=== PATIENT | male | born 1950 | race Caucasian/White ===

== ENCOUNTER 2017-08-10 22:28 | Emergency (ER) | payer BC ==
[2017-08-10] MEDS ORDERED: Ketorolac INJ* 30 MG/ML 1 ML VIAL IV PUSH ONE (22:33)
[2017-08-10] MEDS ORDERED: NS 0.9% 1000 ML* 1,000 ML IV ONE (22:52)
[2017-08-10 22:55] LABS: ABS Basophils 0.1 10^3/ul (0-0.2); ABS Eosinophils 0.2 10^3/ul (0-0.6); ABS Lymphocytes 1.3 10^3/ul (1.0-4.8); ABS Monocytes 1.1 10^3/ul (0-0.8); ABS Neutrophils 12.1 10^3/ul (1.5-7.7); ABS Nucleated RBC 0 10^3/ul; Eosinophil % 1.2 % (0-6); Hematocrit 46 % (42-52); Hemoglobin 15.8 g/dl (14.0-18.0); Lymphocyte % 8.7 % (25-47); Mean Corpuscular HGB Conc 35 g/dl (31-36); Mean Corpuscular Hemoglobin 32 pg (27-31); Mean Corpuscular Volume 94 fL (80-94); Mean Platelet Volume 8.5 um3 (7.4-10.4); Nucleated Red Blood Cells % 0.1; Platelet Count 188 10^3/ul (150-450); Red Cell Distribution Width 14 % (10.5-15); White Blood Count 14.8 10^3/ul (3.5-10.8)
[2017-08-10 22:58] LABS: INR 0.93 (0.77-1.02)
[2017-08-10] MEDS ORDERED: Tamsulosin CAP* 0.4 MG PO ONE (23:45)
[2017-08-11 00:04] LABS: Urine Appearance Clear; Urine Blood Negative (Negative); Urine Color Yellow; Urine Ketones Negative (Negative); Urine Protein Negative (Negative); Urine Specific Gravity 1.012 (1.010-1.030); Urine Urobilinogen Negative (Negative)
[2017-08-11 00:45] VITALS: BP 163/91
--- NOTE | 2017-08-11 02:38 | ED ---
Al Lozano Natalie, scribed for Rayo Betts MD on 08/10/17 at 2327 . Back Pain - HPI Summary HPI Summary: The patient is a 67 y/o M presenting to the ED accompanied by c/o sudden onset constant left flank pain starting two hours ago, worsening in the last hour. The pain started as discomfort, but has become more of an aching pain. The pain is rated 8/10 in severity. Pt additionally c/o frequent urination, cloudy urine, and nausea. Pt denies dysuria and hematuria. He had a US done approximately 3 weeks ago which was positive for kidney stone. He has hx of kidney stones. - History of Current Complaint Chief Complaint: EDFlankPain Stated Complaint: FLANK PAIN/NAUSEA Time Seen by Provider: 08/10/17 22:33 Hx Obtained From: Patient Onset/Duration: Sudden Onset, Lasting Hours, Still Present Onset/Duration: Started Hours Ago, Still Present Timing: Constant Severity Initially: Moderate Severity Currently: Severe Pain Intensity: 8 Pain Scale Used: 0-10 Numeric - Allergies/Home Medications Allergies/Adverse Reactions: Allergies Allergy/AdvReac Type Severity Reaction Status Date / Time Iodinated Contrast- Oral and Allergy Hives Verified 08/10/17 22:37 IV Dye PMH/Surg Hx/FS Hx/Imm Hx Endocrine/Hematology History: Reports: Other Endocrine/Hematological Disorders - hypercholesterolemia Denies: Hx Diabetes Cardiovascular History: Denies: Hx Hypertension History: Reports: Hx Kidney Stones - LEFT, MANY YEARS AGO, PASSED ON HIS OWN Infectious Disease History: No Infectious Disease History: Denies: Traveled Outside the [place] in Last 30 Days - Family History Known Family History: Negative: Diabetes Review of Systems Positive: Nausea Positive: frequency - increased, flank pain, other - cloudy urine. Negative: dysuria All Other Systems Reviewed And Are Negative: Yes Physical Exam - Summary Physical Exam Summary: Appearance: Well appearing, no pain distress Skin: warm, dry, reflects adequate perfusion Head/face: normal Eyes: EOMI, JOHN ENT: normal Neck: supple, non-tender Respiratory: CTA, breath sounds present Cardiovascular: RRR, pulses symmetrical Abdomen: non-tender, soft Bowel Sounds: present Musculoskeletal: normal, strength/ROM intact, no CVA tenderness or pain with palpation Neuro: normal, sensory motor intact, A&Ox3 Triage Information Reviewed: Yes Vital Signs On Initial Exam: Initial Vitals Temp Pulse Resp BP Pulse Ox 97.9 F 80 18 176/93 98 08/10/17 22:33 08/10/17 22:33 08/10/17 22:33 08/10/17 22:33 08/10/17 22:33 Vital Signs Reviewed: Yes Diagnostics - Vital Signs Vital Signs Temp Pulse Resp BP Pulse Ox 08/10/17 22:33 97.9 F 80 18 176/93 98 - Laboratory Lab Results: Lab Results 08/10/17 08/10/17 08/10/17 Range/Units 22:45 22:45 22:45 WBC 14.8 H (3.5-10.8) 10^3/ul RBC 4.90 (4.0-5.4) 10^6/ul Hgb 15.8 (14.0-18.0) g/dl Hct 46 (42-52) % MCV 94 (80-94) fL MCH 32 H (27-31) pg MCHC 35 (31-36) g/dl RDW 14 (10.5-15) % Plt Count 188 (150-450) 10^3/ul MPV 8.5 (7.4-10.4) um3 Neut % (Auto) 82.0 (38-83) % Lymph % (Auto) 8.7 L (25-47) % Gibson % (Auto) 7.6 H (0-7) % Eos % (Auto) 1.2 (0-6) % Baso % (Auto) 0.5 (0-2) % Absolute Neuts (auto) 12.1 H (1.5-7.7) 10^3/ul Absolute Lymphs (auto) 1.3 (1.0-4.8) 10^3/ul Absolute Monos (auto) 1.1 H (0-0.8) 10^3/ul Absolute Eos (auto) 0.2 (0-0.6) 10^3/ul Absolute Basos (auto) 0.1 (0-0.2) 10^3/ul Absolute Nucleated RBC 0 10^3/ul Nucleated RBC % 0.1 INR (Anticoag Therapy) 0.93 (0.77-1.02) Sodium 137 L (139-145) mmol/L Potassium 3.9 (3.5-5.0) mmol/L Chloride 103 (101-111) mmol/L Carbon Dioxide 30 (22-32) mmol/L Anion Gap 4 (2-11) mmol/L BUN 19 (6-24) mg/dL Creatinine 1.05 (0.67-1.17) mg/dL Est GFR ( Amer) 90.1 (>60) Est GFR (Non-Af Amer) 70.0 (>60) BUN/Creatinine Ratio 18.1 (8-20) Glucose 102 H (70-100) mg/dL Lactic Acid (0.5-2.0) mmol/L Calcium 10.1 (8.6-10.3) mg/dL Total Bilirubin 1.00 (0.2-1.0) mg/dL AST 23 (13-39) U/L ALT 19 (7-52) U/L Alkaline Phosphatase 58 (34-104) U/L C-Reactive Protein < 1.00 (< 5.00) mg/L Total Protein 7.2 (6.4-8.9) g/dL Albumin 4.5 (3.2-5.2) g/dL Globulin 2.7 (2-4) g/dL Albumin/Globulin Ratio 1.7 (1-3) Lipase 25 (11.0-82.0) U/L Urine Color Urine Appearance Urine pH (5-9) Ur Specific [place] (1.010-1.030) Urine Protein (Negative) Urine Ketones (Negative) Urine Blood (Negative) Urine Nitrate (Negative) Urine Bilirubin (Negative) Urine Urobilinogen (Negative) Ur Leukocyte Esterase (Negative) Urine Glucose (Negative) Urine Ascorbic Acid (Negative) 08/10/17 08/10/17 Range/Units 22:45 23:55 WBC (3.5-10.8) 10^3/ul RBC (4.0-5.4) 10^6/ul Hgb (14.0-18.0) g/dl Hct (42-52) % MCV (80-94) fL MCH (27-31) pg MCHC (31-36) g/dl RDW (10.5-15) % Plt Count (150-450) 10^3/ul MPV (7.4-10.4) um3 Neut % (Auto) (38-83) % Lymph % (Auto) (25-47) % Gibson % (Auto) (0-7) % Eos % (Auto) (0-6) % Baso % (Auto) (0-2) % Absolute Neuts (auto) (1.5-7.7) 10^3/ul Absolute Lymphs (auto) (1.0-4.8) 10^3/ul Absolute Monos (auto) (0-0.8) 10^3/ul Absolute Eos (auto) (0-0.6) 10^3/ul Absolute Basos (auto) (0-0.2) 10^3/ul Absolute Nucleated RBC 10^3/ul Nucleated RBC % INR (Anticoag Therapy) (0.77-1.02) Sodium (139-145) mmol/L Potassium (3.5-5.0) mmol/L Chloride (101-111) mmol/L Carbon Dioxide (22-32) mmol/L Anion Gap (2-11) mmol/L BUN (6-24) mg/dL Creatinine (0.67-1.17) mg/dL Est GFR ( Amer) (>60) Est GFR (Non-Af Amer) (>60) BUN/Creatinine Ratio (8-20) Glucose (70-100) mg/dL Lactic Acid 0.7 (0.5-2.0) mmol/L Calcium (8.6-10.3) mg/dL Total Bilirubin (0.2-1.0) mg/dL AST (13-39) U/L ALT (7-52) U/L Alkaline Phosphatase (34-104) U/L C-Reactive Protein (< 5.00) mg/L Total Protein (6.4-8.9) g/dL Albumin (3.2-5.2) g/dL Globulin (2-4) g/dL Albumin/Globulin Ratio (1-3) Lipase (11.0-82.0) U/L Urine Color Yellow Urine Appearance Clear Urine pH 6.0 (5-9) Ur Specific [place] 1.012 (1.010-1.030) Urine Protein Negative (Negative) Urine Ketones Negative (Negative) Urine Blood Negative (Negative) Urine Nitrate Negative (Negative) Urine Bilirubin Negative (Negative) Urine Urobilinogen Negative (Negative) Ur Leukocyte Esterase Negative (Negative) Urine Glucose Negative (Negative) Urine Ascorbic Acid * A (Negative) Result Diagrams: 08/10/17 22:45 08/10/17 22:45 Lab Statement: Any lab studies that have been ordered have been reviewed, and results considered in the medical decision making process. - Radiology Abd XR Xray Interpretation: Positive (See Comments) Radiology Interpretation Completed By: Radiologist - CT Abd/Pel CT CT Interpretation: Positive (See Comments) - Obstructive uropathy. ED physician has reviewed this report. CT Interpretation Completed By: Radiologist Back Pain Course/Dx - Course Course Of Treatment: Patient with flank pain and history kidney stones. Urologist had been informed prior to the patient's arrival. CT scan shows midureteral stone on the left. The patient is comfortable after Toradol. His urine is noninfected. KUB fails to show location of the stone. Flomax given. Patient will follow-up with the urologist tomorrow and discharged comfortable. - Diagnoses Differential Diagnosis/HQI/PQRI: Positive: Other - Renal colic, diverticulitis, lumbar back pain Provider Diagnoses: Renal colic, Ureterolithiasis - Provider Notifications Discussed Care Of Patient With: Gaston Starks Time Discussed With Above Provider: 23:52 Instructed by Provider To: Other - Dr. Starks would like a KUB for the pt. He will see the pt in his office. When UA results come back, we will see if the urine is infected. He would like the pt on Bactrim. Discharge - Sign-Out/Discharge Documenting (check all that apply): Discharge/Admit/Transfer - Discharge Plan Condition: Good Disposition: HOME Prescriptions: Naproxen [Naproxen 500 mg tab] 500 mg PO BID #10 tablet Ondansetron ODT TAB* [Zofran 4 MG Odt TAB*] 4 mg PO Q6H PRN #12 tab.odt PRN Reason: Nausea Oxycodone HCl/Acetaminophen [Percocet 5-325 mg Tablet] 1 each PO TID PRN #12 tablet MDD 3 PRN Reason: Severe Pain Tamsulosin HCl [Flomax] 0.4 mg PO DAILY #5 cap.er.24h Patient Education Materials: Renal Colic (ED) Referrals: Hever Santana MD [Primary Care Provider] - Gaston Starks MD [Medical Doctor] - Additional Instructions: Stay well-hydrated. Return with fever, vomiting, worse or other concerns. Call Dr. Starks first thing in the morning for an appointment. Strain your urine. - Billing Disposition and Condition Condition: GOOD Disposition: HOME The documentation as recorded by the Al lopez Natalie accurately reflects the service I personally performed and the decisions made by me, Rayo Betts MD.
--- NOTE | 2017-08-11 07:59 | RAD ---
INDICATION: Left flank pain. History of renal stones COMPARISON: KUB same date TECHNIQUE: Noncontrast axial source images were acquired from the level hemidiaphragms to the symphysis pubis as part of CT imaging for renal stone. Lung bases: The lung bases are clear. Liver: The liver is normal in size. Noncontrast imaging shows a 1 cm hypodensity left hepatic lobe and a 4 mm hypodensity in the inferior right hepatic lobe. These are indeterminant but on a statistical basis is likely represent cysts or hemangiomas.. Gallbladder: There are no calcified gallstones. There is no evidence of wall thickening or pericholecystic fluid.. Spleen: The spleen is normal in size. The noncontrast CT appearance is normal. Pancreas: Noncontrast imaging shows no pancreatic mass or ductal dilitation. Adrenal glands: No masses are identified. Kidneys/Bladder: There is no evidence of right-sided urolithiasis. There is moderate left-sided hydronephrosis and hydroureter. There is left-sided perinephric stranding. There are multiple calcifications along the course of the distal left ureter many of which are phleboliths but one of which is believed to represent an obstructive ureteral calculus measuring 4 mm. This is seen on coronal reference image 70/102. There are additional tiny nonobstructive left-sided renal stones Adenopathy: There is no evidence of intraperitoneal or retroperitoneal adenopathy. Evaluation is limited without oral contrast. Fluid collections: There are no free or localized fluid collections. Vessels: The aorta and iliac vessels are normal in caliber. There are no significant atherosclerotic changes. The IVC appears normal Pelvic organs: The prostate is enlarged GI tract: Evaluation of the bowel is limited without oral contrast. The stomach, small bowel, and lower GI tract appear grossly normal. There are no obstructive findings. The appendix is visualized and appears normal. Soft tissues: No soft tissue abnormalities of the extraperitoneal abdomen or pelvis are identified. Osseous structures: There are no acute osseous findings. IMPRESSION: MID TO DISTAL LEFT URETERAL CALCULUS WITH OBSTRUCTIVE FINDINGS. ADDITIONAL NONOBSTRUCTIVE LEFT-SIDED NEPHROLITHIASIS. BPH
--- NOTE | 2017-08-11 08:01 | RAD ---
HISTORY: Left mid ureteral stone COMPARISONS: June 06, 2017, CT dated August 10, 2017 VIEWS: Frontal views of the abdomen. FINDINGS: BOWEL: There is a nonspecific bowel gas pattern, with nondilated small bowel gas noted. There is a large amount of stool within the colon. CALCULI: There are no abnormal calculi. Evaluation is limited by overlying bowel. BONES AND SOFT TISSUES: Mild degenerative changes are noted. OTHER FINDINGS: The lung bases are clear. There is no subphrenic gas. IMPRESSION: LARGE AMOUNT OF STOOL WITHIN THE COLON. NO APPRECIABLE NEPHROLITHIASIS.
== END 2017-08-11 00:45 | disposition home or self-care (01) ==
LOC: ED 22:28
DX: N23 Unspecified renal colic (principal); N20.2 Calculus of kidney with calculus of ureter; N40.0 Benign prostatic hyperplasia without lower urinary tract symptoms; Z87.442 Personal history of urinary calculi; Z91.041 Radiographic dye allergy status
CPT/HCPCS: 36415; 74018; 74176; 80053; 81003; 83605; 83690; 85025; 85610; 86140; 96361; 96374; 99283; J1885

== ENCOUNTER 2018-07-09 16:08 | Emergency (ER) | payer BC ==
[2018-07-09 16:26] VITALS: BP 141/84
--- NOTE | 2018-07-09 16:44 | UC ---
Skin Complaint HPI - HPI Summary HPI Summary: Removed a tick above belly button on 3 days ago. Then noticed a red ring around the bite. He states he removed full insect. It was not engorged. - History of Current Complaint Chief Complaint: UCSkin Time Seen by Provider: 07/09/18 16:34 Stated Complaint: TICK REMOVED FROM BELLY Hx Obtained From: Patient Onset/Duration: Sudden Onset Pain Intensity: 0 Pain Scale Used: 0-10 Numeric Location: Discrete - Allergy/Home Medications Allergies/Adverse Reactions: Allergies Allergy/AdvReac Type Severity Reaction Status Date / Time ezetimibe [From Zetia] Allergy Unknown Verified 09/13/17 15:11 Reaction Details Iodinated Contrast- Oral and Allergy Hives Verified 08/10/17 22:37 IV Dye PMH/Surg Hx/FS Hx/Imm Hx - Additional Past Medical History Additional PMH: no chronic dis Previously Healthy: Yes - Surgical History Surgical History: None - Family History Known Family History: Negative: Diabetes - Social History Alcohol Use: None Substance Use Type: None Smoking Status (MU): Never Smoked Tobacco Review of Systems All Other Systems Reviewed And Are Negative: Yes Constitutional: Positive: Negative Skin: Positive: Rash, Other - bug bite Musculoskeletal: Negative: Arthralgia Neurological: Negative: Headache Physical Exam Triage Information Reviewed: Yes Appearance: Well-Appearing Vital Signs: Initial Vital Signs Temp 99.4 F 07/09/18 16:20 Pulse 108 07/09/18 16:20 Resp 16 07/09/18 16:20 BP 141/84 07/09/18 16:20 Pulse Ox 96 07/09/18 16:20 Vital Signs Reviewed: Yes Neurological: Positive: Alert, Other: - normal speech Skin: Positive: Other - small insect/tick bite inflammation, no bull's eye rash Course/Dx - Course Course Of Treatment: Tick bite that was not engorged and removed fully by pt. on exam there is mild irritation but no obvious bull's eye rash. offered prophylaxis he declined. - Differential Diagnoses - Skin Complaint Differential Diagnoses: Foreign Body, Tick Born Illness - Diagnoses Provider Diagnosis: Tick bite Discharge - Sign-Out/Discharge Documenting (check all that apply): Patient Departure All imaging exams completed and their final reports reviewed: No Studies - Discharge Plan Condition: Good Disposition: HOME Patient Education Materials: Lyme Disease (ED) Referrals: Hever Santana MD [Primary Care Provider] - Additional Instructions: follow up with your pcp if symptoms develop - Billing Disposition and Condition Condition: GOOD Disposition: Home
== END 2018-07-09 16:45 | disposition home or self-care (01) ==
LOC: UCEAST 16:08
DX: S30.861A Insect bite (nonvenomous) of abdominal wall, initial encounter (principal); R21 Rash and other nonspecific skin eruption; W57.XXXA Bitten or stung by nonvenomous insect and other nonvenomous arthropods, initial encounter; Y92.9 Unspecified place or not applicable; Z88.8 Allergy status to other drugs, medicaments and biological substances; Z91.041 Radiographic dye allergy status
CPT/HCPCS: 99211; G0463